=== PATIENT | female | born 1955 | race Caucasian/White ===

== ENCOUNTER 2017-02-02 11:32 | Emergency (ER) | payer OTHER ==
[2017-02-02 11:41] VITALS: BP 142/85
[2017-02-02] MEDS ORDERED: BUPIVACAINE HCL/EPINEPHRINE 10 ML VIAL IJ ONE (11:53)
--- NOTE | 2017-02-02 11:56 | ERNOTE ---
Lower Extremity HPI - General Time Seen by Provider: 02/02/17 11:54 Source: patient Exam Limitations: no limitations - Immun/Allergies/Home Medications Immunizations: IMMUNIZATION HX Immunizations Up to Date Yes Allergies/Adverse Reactions: Allergies Allergy/AdvReac Type Severity Reaction Status Date / Time morphine AdvReac Mild RASH Verified 02/02/17 11:41 Home Medications: HOME MEDICATIONS Cephalexin Monohydrate [Keflex] 500 mg PO QID #40 cap 02/02/17 [Last Taken Unknown] Omeprazole [Prilosec] 20 mg PO DAILY 02/02/17 [Last Taken Unknown] - History of Present Illness Narrative: This is a 61-year-old female generally healthy with a history of GERD who was leading a horse when the horse stepped on the back of her left foot. She has a laceration in the left Achilles region. He should states that her last tetanus shot was approximately 3 years ago Review of Systems - Review of Systems Constitutional: Present: no symptoms reported EYE: Present: no symptoms reported ENT: Present: no symptoms reported Respiratory: Present: no symptoms reported Cardiology: Present: no symptoms reported Gastrointestinal/Abdominal: Present: no symptoms reported Genitourinary: Present: no symptoms reported Musculoskeletal: Present: See HPI - pain and discomfort in the Achilles region of the left foot function is completely intact this happened approximately 4 hours ago. - Patient's Past Medical History Patient History - Medical: GERD, Other Patient History - Cardiac/Respiratory: No pertinent hx Patient History - Cancer: No Hx of Cancer Patient History - Surgical Procedures: Appendectomy, D & C, T & A, Other Patient History - Other: None - Family History Father Family History - Medical: , No pertinent hx Family History - Cardiac/Respiratory: No pertinent hx Mother Family History - Medical: , Other Family History - Cardiac/Respiratory: No pertinent hx - Social History Living Situations: spouse Abuse History: No History of abuse Psych History: No pertinent hx Smoking Status: Never smoker Alcohol Use: none Drug Use: none - Immunizations Immunizations Up to Date: Yes Physical Exam - Physical Exam General Appearance: Present: wd/wn, alert, no apparent distress Respiratory: Present: no respiratory distress, normal breath sounds, no accessory muscle use, chest nontender, lungs clear Cardiovascular/Chest: Present: regular rate, rhythm, no murmur, normal peripheral pulses Skin Exam: Present: normal color, other - there appears to be a 2.5 cm linear laceration in the Achilles region of the left foot. Patient is well able to flex and dorsiflex and plantar flex her left foot she does have pain in the area however the Achilles tendon is intact and on interrupted. ED Progress - Vital Signs Patient's Vital Signs:: I have reviewed the patient's vital signs. Vital Signs: Vital Signs 02/02/17 11:39 Temperature 36.5 C Pulse Rate 55 L Respiratory 14 Rate Blood Pressure 142/85 O2 Sat by Pulse 98 Oximetry - Progress/Reassessment Chief Complaint: Foot Injury/Pain Plan - Plan Plan: Using lidocaine and at the approximately 5 mL was injected in the general region for local anesthesia at the margins of the lacerations following that the laceration was extensively irrigated and then using a 3-0 Prolene the area was sutured up with six sutures. The patient tolerated the procedure very well. Xray was ordered by this examiner however pt adamantly refused to have Xrays done. she will placed in a configuration where she is unable to flex her left foot Departure Clinical Impression: Laceration of ankle, left Qualifiers: Encounter type: initial encounter Qualified Code(s): S91.012A - Laceration without foreign body, left ankle, initial encounter - Departure Disposition: Home self-care Condition: Good Instructions: Laceration Care, Adult, [id number] Additional Instructions: You will need to be seen by a provider in 48 hours for a wound check and then you need to be seen in 7 days by a provider for suture removal. Prescriptions: Cephalexin Monohydrate [Keflex] 500 mg PO QID #40 cap
[2017-02-02] MEDS ORDERED: CEPHALEXIN MONOHYDRATE 250 MG CAPSULE PO ONE (12:15)
[2017-02-02] MEDS ORDERED: LIDOCAINE HCL/EPINEPHRINE 50 ML VIAL IJ ONE (12:30)
[2017-02-02] MEDS ORDERED: CEPHALEXIN MONOHYDRATE 250 MG CAPSULE ONE (12:36)
[2017-02-02] MEDS: LIDOCAINE HCL/EPINEPHRINE 50 ML VIAL IJ ONE (12:45)
== END 2017-02-02 12:40 | disposition home or self-care (01) ==
LOC: ER 11:32
PROC: 0HQLXZZ Repair Left Lower Leg Skin, External Approach (ICD-10-PCS; principal; 2017-02-02)
DX: S91.012A Laceration without foreign body, left ankle, initial encounter (principal); W55.19XA Other contact with horse, initial encounter; Y93.K1 Activity, walking an animal; Y92.9 Unspecified place or not applicable; Y99.9 Unspecified external cause status; K21.9 Gastro-esophageal reflux disease without esophagitis; Z53.29 Procedure and treatment not carried out because of patient's decision for other reasons